=== PATIENT | female | born 1995 | race Two or more races ===

== ENCOUNTER 2018-02-05 10:25 | Emergency (ER) | payer MEDICAID, SELFPAY ==
[~2018-02-05] VITALS: Ht 149.9 cm; Wt 53.9 kg
[2018-02-05 10:39] VITALS: BP 110/61
[2018-02-05 11:16] LABS: BASOPHILS # (AUTO) 0.03 x10^3/uL (0-0.1); BASOPHILS % (AUTO) 0 % (0-1); EOSINOPHILS # (AUTO) 0.22 x10^3/uL (0-0.4); EOSINOPHILS % (AUTO) 3 % (1-7); LYMPHOCYTES # (AUTO) 2.49 x10^3/uL (1-3.4); LYMPHOCYTES % (AUTO) 37 % (22-44); MD NO; MEAN CORPUSCULAR HEMOGLOBIN 29.4 pg (27.0-34.8); MEAN CORPUSCULAR HGB CONC 33.9 g/dL (32.4-35.8); MEAN CORPUSCULAR VOLUME 86.7 fL (80-100); MEAN PLATELET VOLUME 8.6 fL (7.4-10.4); MONOCYTES # (AUTO) 0.36 x10^3/uL (0.2-0.8); MONOCYTES % (AUTO) 5 % (2-9); NEUTROPHILS # (AUTO) 3.69 x10^3/uL (1.8-6.8); NEUTROPHILS % (AUTO) 54 % (42-75); PLATELET COUNT 197 x10^3/uL (130-400); RED BLOOD COUNT 4.18 x10^6/uL (3.82-5.3); RED CELL DISTRIBUTION WIDTH 13.4 % (9.6-15.2)
[2018-02-05 11:28] LABS: ALANINE AMINOTRANSFERASE 15 U/L (12-78); ALBUMIN 3.1 g/dL (3.4-5.0); ANION GAP 8 mmol/L (5-15); CALCIUM 8.2 mg/dL (8.5-10.1); CHLORIDE 106 mmol/L (98-107); CREATININE 0.59 mg/dL (0.55-1.02)
[2018-02-05 11:46] LABS: ALKALINE PHOSPHATASE 60 U/L (45-117); BILIRUBIN,TOTAL 0.2 mg/dL (0.2-1.0); TOTAL PROTEIN 6.7 g/dL (6.4-8.2)
[2018-02-05] MEDS ORDERED: ONDA4TAB10 PO (12:07)
[2018-02-05 12:19] LABS: MICROSCOPIC NOT IND
[2018-02-05 12:26] LABS: CULTURE INDICATED? NO
== END 2018-02-05 12:51 | disposition home or self-care (01) ==
LOC: ED 12:02
DX: O21.9 Vomiting of pregnancy, unspecified (principal); Z3A.15 15 weeks gestation of pregnancy
CPT/HCPCS: 36415; 76801; 80053; 81003; 84702; 85025; 86901; 99285

== ENCOUNTER 2018-04-07 19:12 | Emergency (ER) | payer MEDICAID ==
[~2018-04-07] VITALS: Ht 149.9 cm; Wt 60.0 kg
[~2018-04-07 19:12] MED LIST: ONDA4TAB10 PO
[2018-04-07] MEDS ORDERED: SODIUM CHLORIDE 0.9% 1,000ML IVBOLUS ONE (20:00)
[2018-04-07 20:08] LABS: BASOPHILS # (AUTO) 0.06 x10^3/uL (0-0.1); BASOPHILS % (AUTO) 1 % (0-1); EOSINOPHILS # (AUTO) 0.24 x10^3/uL (0-0.4); EOSINOPHILS % (AUTO) 3 % (1-7); LYMPHOCYTES # (AUTO) 2.19 x10^3/uL (1-3.4); LYMPHOCYTES % (AUTO) 23 % (22-44); MD NO; MEAN CORPUSCULAR HEMOGLOBIN 30.7 pg (27.0-34.8); MEAN CORPUSCULAR VOLUME 90.4 fL (80-100); MEAN PLATELET VOLUME 8.2 fL (7.4-10.4); MONOCYTES # (AUTO) 0.49 x10^3/uL (0.2-0.8); MONOCYTES % (AUTO) 5 % (2-9); NEUTROPHILS % (AUTO) 68 % (42-75); PLATELET COUNT 189 x10^3/uL (130-400); RED BLOOD COUNT 3.57 x10^6/uL (3.82-5.3); RED CELL DISTRIBUTION WIDTH 14.1 % (9.6-15.2)
[2018-04-07 20:18] LABS: ALBUMIN 2.7 g/dL (3.4-5.0); ANION GAP 13 mmol/L (5-15); CHLORIDE 107 mmol/L (98-107); CREATININE 0.42 mg/dL (0.55-1.02)
[2018-04-07 22:15] VITALS: BP 103/53
== END 2018-04-07 22:17 | disposition home or self-care (01) ==
LOC: ED 21:13
DX: O26.892 Other specified pregnancy related conditions, second trimester (principal); R55 Syncope and collapse; Z3A.23 23 weeks gestation of pregnancy
CPT/HCPCS: 36415; 76805; 80048; 82040; 85025; 93005; 96360; 96361; 99285; J7030

== ENCOUNTER 2020-12-23 03:42 | Outpatient (CLI) | payer MEDICAID ==
[~2020-12-23] VITALS: Ht 149.9 cm; Wt 62.7 kg
[2020-12-23 05:24] LABS: MICROSCOPIC INDICATED
== END 2020-12-23 05:47 | disposition home or self-care (01) ==
LOC: LDOP 03:42
PROVIDERS: ATTEND Obstetrics & Gynecology
DX: O26.892 Other specified pregnancy related conditions, second trimester (principal); R10.9 Unspecified abdominal pain; Z3A.26 26 weeks gestation of pregnancy
CPT/HCPCS: 81001; 87086; 99211; G0463

== ENCOUNTER 2020-12-23 05:52 | Emergency (ER) | payer MEDICAID ==
[~2020-12-23] VITALS: Ht 149.9 cm; Wt 63.6 kg
[2020-12-23 05:56] VITALS: BP 92/32
[2020-12-23] MEDS ORDERED: HYDROcodone/APAP 5/325 TABLET PO ONE (06:30)
[2020-12-23] MEDS ORDERED: CLINDAMYCIN 300 MG CAPSULE PO ONE (06:30)
[2020-12-23] MEDS ORDERED: HYDROcodone/APAP 5/325 TABLET ONE (06:35)
[2020-12-23] MEDS ORDERED: CLINDAMYCIN 300 MG CAPSULE ONE (06:35)
== END 2020-12-23 06:47 | disposition home or self-care (01) ==
LOC: ED 06:40
DX: O26.892 Other specified pregnancy related conditions, second trimester (principal); K02.9 Dental caries, unspecified; K08.89 Other specified disorders of teeth and supporting structures; Z3A.25 25 weeks gestation of pregnancy
CPT/HCPCS: 99283

== ENCOUNTER 2021-02-08 12:10 | Outpatient (CLI) | payer MEDICAID ==
[~2021-02-08] VITALS: Ht 149.9 cm; Wt 63.6 kg
[2021-02-08 12:54] VITALS: BP 91/53
== END 2021-02-08 15:24 | disposition home or self-care (01) ==
LOC: LDOP 12:10
PROVIDERS: ATTEND Obstetrics & Gynecology
DX: O99.353 Diseases of the nervous system complicating pregnancy, third trimester (principal); G40.909 Epilepsy, unspecified, not intractable, without status epilepticus; O26.893 Other specified pregnancy related conditions, third trimester; R55 Syncope and collapse; Z3A.33 33 weeks gestation of pregnancy